=== PATIENT | female | born 1955 | race Hispanic/Latino ===

== ENCOUNTER 2023-05-06 10:36 | Observation (INO) | payer MEDICARE, OTHER ==
[~2023-05-06] VITALS: Ht 157.5 cm; Wt 81.6 kg
[2023-05-06] MEDS ORDERED: ASPIRIN 81 MG CHEW TAB PO ONE (10:45)
[2023-05-06] MEDS ORDERED: LORAZEPAM INJ 2 MG/ML VIAL IV ONE (10:45)
[2023-05-06 10:55] LABS: BASOPHILS % 0.4 % (0.0-1.0); HEMATOCRIT 41.6 % (34.2-44.1); HEMOGLOBIN 14.1 g/dL (12.0-16.0); LYMPHOCYTES % 12.2 % (18.0-39.1); MEAN CORPUSCULAR HEMOGLOBIN 28.8 pg (28-32); MEAN CORPUSCULAR HGB CONC 33.9 g/dL (31-35); MEAN CORPUSCULAR VOLUME 84.9 fL (81-99); MONOCYTES # (AUTO) 0.4 (0.2-0.8); MONOCYTES % 4.3 % (4.4-11.3); NEUTROPHILS % 82.5 % (38.7-80.0); PLATELET COUNT 310 x10e3/uL (140-360); RED CELL DISTRIBUTION WIDTH 13.3 % (11.7-14.4); WHITE BLOOD COUNT 8.43 x10e3/uL (4.8-10.8)
[2023-05-06 11:02] LABS: AMPHETAMINES SCREEN,URINE NEGATIVE (NEGATIVE); BENZODIAZEPINES SCREEN,URINE NEGATIVE (NEGATIVE); CANNABINOIDS SCREEN,URINE NEGATIVE (NEGATIVE); METHADONE SCREEN, URINE NEGATIVE (NEGATIVE); OPIATES SCREEN,URINE NEGATIVE (NEGATIVE); PHENCYCLIDINE SCREEN,URINE NEGATIVE (NEGATIVE)
[2023-05-06 11:05] LABS: INR 0.9; PROTHROMBIN TIME 12.3 seconds (11.9-14.5)
[2023-05-06 11:06] LABS: PARTIAL THROMBOPLASTIN TIME 29.1 seconds (23.8-35.5)
[2023-05-06 11:15] LABS: ALBUMIN 4.5 g/dL (3.5-5.0); ALBUMIN/GLOBULIN RATIO 1.1 (0.8-2.0); ANION GAP 19.6 mmol/L (8-16); BILIRUBIN,TOTAL 0.5 mg/dL (0.2-1.2); CREATININE, SERUM 0.72 mg/dL (0.57-1.11); MAGNESIUM 1.9 MG/DL (1.3-2.1); POTASSIUM 3.6 mmol/L (3.5-5.1); TOTAL PROTEIN 8.6 g/dL (6.5-8.1)
[2023-05-06 11:21] LABS: TROPONIN I 0.005 ng/mL (0-0.300)
[2023-05-06] MEDS ORDERED: ONDANSETRON HCL INJ 2MG/ML 2ML 2 MG/ML VIAL IV PRN (11:45)
[2023-05-06] MEDS ORDERED: Morphine 2mg Syringe 2 MG/ML SYR IV PRN (11:45)
[2023-05-06 13:40] VITALS: BP 109/46; PULSE 69; RESP 19; TEMP 97.4; O2SAT 98
[2023-05-06 15:43] VITALS: BP 109/46; PULSE 69; RESP 19; TEMP 97.4; O2SAT 98
[2023-05-06 15:57] VITALS: BP 109/46; PULSE 69; RESP 19; TEMP 97.4; O2SAT 98
[2023-05-06] MEDS ORDERED: CITALOPRAM HBR20 MG PO (16:14)
[2023-05-06] MEDS ORDERED: ESIDRIX25 MG PO (16:14)
[2023-05-06] MEDS ORDERED: URSODIOL300 MG PO (16:14)
[2023-05-06] MEDS ORDERED: ATORVASTATIN CA20 MG PO (16:14)
[2023-05-06] MEDS ORDERED: BENAZEPRIL HCL40 MG PO (16:14)
[2023-05-06] MEDS ORDERED: NEXIUM40 MG PO (16:14)
[2023-05-06] MEDS ORDERED: SODIUM CHLORIDE 0.9% 1000ML 1,000 ML IV SCH (19:15)
[2023-05-06 19:33] VITALS: BP 118/62; PULSE 60; RESP 18; TEMP 98.2; O2SAT 100
[2023-05-06] MEDS: FAMOTIDINE 20 MG/2 ML VIAL IV SCH (20:08)
[2023-05-06 21:26] LABS: TROPONIN I 0.008 ng/mL (0-0.300)
[2023-05-06] MEDS ORDERED: ZOLPIDEM TARTRATE 5 MG TAB PO PRN (21:30)
[2023-05-06] MEDS ORDERED: ACETAMINOPHEN 325 MG TAB PO PRN (21:30)
[2023-05-06 21:41] VITALS: BP 118/62; PULSE 60; RESP 18; TEMP 98.2; O2SAT 100
[2023-05-06 23:20] VITALS: BP 120/75; PULSE 59; RESP 18; TEMP 98; O2SAT 94
[2023-05-07 03:23] VITALS: BP 130/75; PULSE 62; RESP 18; TEMP 97.9; O2SAT 96
[2023-05-07 06:01] LABS: BASOPHILS % 0.5 % (0.0-1.0); EOSINOPHILS # (AUTO) 0.1 (0.0-0.4); EOSINOPHILS % 0.8 % (0.0-6.0); HEMATOCRIT 38.1 % (34.2-44.1); HEMOGLOBIN 12.7 g/dL (12.0-16.0); LYMPHOCYTES % 32.4 % (18.0-39.1); MEAN CORPUSCULAR HEMOGLOBIN 28.9 pg (28-32); MEAN CORPUSCULAR HGB CONC 33.3 g/dL (31-35); MEAN CORPUSCULAR VOLUME 86.8 fL (81-99); MONOCYTES # (AUTO) 0.5 (0.2-0.8); MONOCYTES % 8.1 % (4.4-11.3); NEUTROPHILS # (AUTO) 3.6 (2.1-6.9); NEUTROPHILS % 57.7 % (38.7-80.0); PLATELET COUNT 271 x10e3/uL (140-360); RED BLOOD COUNT 4.39 x10e6/uL (3.6-5.1); RED CELL DISTRIBUTION WIDTH 13.8 % (11.7-14.4); WHITE BLOOD COUNT 6.18 x10e3/uL (4.8-10.8)
[2023-05-07 06:27] LABS: ALBUMIN 3.6 g/dL (3.5-5.0); ANION GAP 15.4 mmol/L (8-16); BILIRUBIN,TOTAL 0.7 mg/dL (0.2-1.2); CALCIUM 9.2 mg/dL (8.4-10.2); CREATININE, SERUM 0.76 mg/dL (0.57-1.11); POTASSIUM 3.4 mmol/L (3.5-5.1); TOTAL PROTEIN 7.1 g/dL (6.5-8.1)
[2023-05-07 06:28] LABS: CHOL/HDL RATIO 4.4 (3.0-3.6)
[2023-05-07 07:01] LABS: TROPONIN I 0.009 ng/mL (0-0.300)
[2023-05-07] MEDS: FAMOTIDINE 20 MG/2 ML VIAL IV SCH (08:19)
[2023-05-07 08:52] VITALS: BP 114/62; PULSE 59; RESP 17; TEMP 97.9; O2SAT 96
[2023-05-07] MEDS ORDERED: ASPIRIN 81 MG ENTERIC COATED PO SCH (09:00)
[2023-05-07] MEDS ORDERED: POTASSIUM CHLORIDE 10MEQ EA PO ONE (09:00)
[2023-05-07 10:36] VITALS: BP 114/62; PULSE 59; RESP 17; TEMP 97.9; O2SAT 96
[2023-05-07] MEDS ORDERED: ONDANSETRON HCL 4 MG ORAL DISINTEGRATING TAB PO PRN (11:45)
[2023-05-07] MEDS ORDERED: ATORVASTATIN 40 MG TAB PO SCH (21:00)
== END 2023-05-07 11:42 | disposition home or self-care (01) ==
LOC: ER 10:42 → ERHOLD 11:44 → MED/SURG3 13:29
PROVIDERS: ADMIT Internal Medicine; ATTEND Internal Medicine
DX: R07.9 Chest pain, unspecified (principal); F14.90 Cocaine use, unspecified, uncomplicated; I10 Essential (primary) hypertension; E78.5 Hyperlipidemia, unspecified; F32.A Depression, unspecified; F41.9 Anxiety disorder, unspecified; Z11.52 Encounter for screening for COVID-19; Z79.899 Other long term (current) drug therapy
CPT/HCPCS: 36415 ×2; 71045; 80053 ×2; 80061; 80307; 82550 ×2; 83735; 84484 ×2; 85025 ×2; 85610; 85730; 93005; 99284; C9113; G0378 ×2; J2060; J7030; U0002